=== PATIENT | male | born 1980 | race Caucasian/White ===

== ENCOUNTER 2016-10-03 13:59 | Emergency (ER) | payer OTHER ==
[~2016-10-03] VITALS: Ht 172.7 cm; Wt 90.4 kg
[2016-10-03 14:03] VITALS: TEMP 37.1; Ht 172.7 cm; Wt 90.4 kg
[2016-10-03] MEDS ORDERED: SODIUM CHLORIDE 0.9% 1000ML 1,000 ML IV STA (14:37)
[2016-10-03] MEDS ORDERED: ONDANSETRON INJ 2 MG/ML 2 ML VIAL IV STA (14:37)
[2016-10-03] MEDS ORDERED: PANTOprazole INJ 40 MG in SYRINGE 0 ML IV ONE (14:45)
--- NOTE | 2016-10-03 14:52 | DIAGNOSTIC IMAGING REPORT ---
CHEST ONE VIEW PORTABLE CLINICAL HISTORY: Pain, radiating to the abdomen. COMPARISON STUDY: No previous studies for comparison. FINDINGS: The cardiac and mediastinal contours are normal. There is no evidence of focal pulmonary consolidation. There is no evidence of failure. No pleural effusions are visualized.[ No free intraperitoneal air is identified IMPRESSION: No active disease in the chest. Electronically signed by: Rustam Lees M.D. 10/03/2016 2:50 PM Dictated Date/Time: 10/03/2016 2:49 PM
--- NOTE | 2016-10-03 15:01 | EMERGENCY ROOM VISIT NOTE ---
History Report prepared by Mela: Yasmin Ashley Under the Supervision of: Dyana HidalgoO. First contact with patient: 14:25 Chief Complaint: NAUSEA Stated Complaint: NAUSES, VOMITING AFTER EATING FOOD AND DRINK Nursing Triage Summary: having left side rib pain for the past couple weeks. having nausea after eating. I stopped eating on night. I felt better when I didnt eat History of Present Illness The patient is a 36 year old male who presents to the Emergency Room with complaints of constant LUQ pain beginning 1 month ago. The patient states that he initially thought that he was feeling some rib pain but it persisted. He reports that 1 week ago his pain worsened and 3 days ago he began to notice that eating was making his symptoms worse. He notes that when he eats he has tingling in his legs and arms, nausea, and sweating. He denies any chest pain and trouble breathing. The patient states that when he does not eat his pain gets better but it is always there. Source of History: patient Onset: 1 month ago Position: abdomen (RUQ) Quality: other (tingling) Timing: constant Modifying Factors (Worsening): eating Modifying Factors (Relieving): other (not eating) Associated Symptoms: + diaphoresis, + nausea, No SOB, No chest pain Note: He notes that when he eats he has tingling in his legs and arms. Review of Systems See HPI for pertinent positives & negatives. A total of 10 systems reviewed and were otherwise negative. Past Medical & Surgical Medical Problems: (1) No Known Active Medical Problems Family History No pertinent family history stated. Social History Smoking Status: Former Smoker Smokeless Tobacco Use: No Alcohol Use: occasionally Housing Status: lives with significant other Current/Historical Medications Scheduled Omeprazole (Prilosec), 20 MG PO DAILY Ondasetron Odt (Zofran Odt), 4 MG SL Q6H Ranitidine (Zantac), 150 MG PO BID Allergies Coded Allergies: No Known Allergies (Unverified , 10/03/16) Physical Exam Vital Signs Date Time Temp Pulse Resp B/P Pulse Ox O2 Delivery O2 Flow Rate FiO2 10/03/16 19:04 83 16 147/86 97 10/03/16 16:46 81 16 165/98 99 Room Air 10/03/16 15:27 97 1/14/17 15:10 77 16 155/95 99 Room Air 10/03/16 14:03 37.1 97 18 154/91 97 Room Air Physical Exam GENERAL: Patient is awake, alert, and in no acute distress. Patient is resting comfortably and showing no signs of anxiety EYES: The conjunctivae are clear. The pupils are round and reactive. EARS, NOSE, MOUTH AND THROAT: The nose is without any evidence of any deformity. Mucous membranes are moist tongue is midline NECK: The neck is nontender and supple. RESPIRATORY: Normal respiratory effort is noted there is no evidence of wheezing rhonchi or rales CARDIOVASCULAR: Regular rate and rhythm noted there no murmurs rubs or gallops normal S1 normal S2 GASTROINTESTINAL: The abdomen is soft. Bowel sounds are present in all quadrants. Moderately distended but soft, tenderness in the LUQ as well as the left subcostal region. Pain was very significant and mild guarding was noted. BACK: No midline tenderness or or step-off noted range of motion in flexion extension as well as rotation no signs of muscle spasm noted MUSCULOSKELETAL/EXTREMITIES: There is no evidence of gross deformity full range of motion is noted in the hips and shoulders SKIN: There is no obvious evidence of any rash. There are no petechiae, pallor or cyanosis noted. NEUROLOGIC: Patient is awake alert and oriented x3 Medical Decision & Procedures ER Provider Diagnostic Interpretation: X ray results and stated below per my interpretation and radiology interpretation. Other radiology results per my review and radiologist interpretation: CHEST ONE VIEW PORTABLE FINDINGS: The cardiac and mediastinal contours are normal. There is no evidence of focal pulmonary consolidation. There is no evidence of failure. No pleural effusions are visualized.[ No free intraperitoneal air is identified IMPRESSION: No active disease in the chest. Electronically signed by: Rustam Lees M.D. 10/03/2016 2:50 PM Dictated Date/Time: 10/03/2016 2:[address] ABD/PELVIS IV AND ORAL CONT TECHNIQUE: Following the IV administration of 116 mL of Optiray-320, CT scan of the abdomen and pelvis was performed from the lung bases to the proximal femurs. Images are reviewed in the axial, sagittal, and coronal planes. IV contrast was administered without complication. CT DOSE: 450.18 mGy.cm FINDINGS: Lower chest: The heart is normal in size and configuration, without pericardial effusion. The lung bases and pleural spaces are clear. Liver: There is hepatic steatosis. No focal masses are visualized. Gallbladder: Unremarkable. Spleen: Normal in size and attenuation. Pancreas: Unremarkable. Adrenal glands: Unremarkable. Kidneys: There is symmetric renal cortical enhancement. The kidneys are normal in size without hydronephrosis. Bowel: There are no transition zones indicate bowel obstruction. The appendix appears normal. There is no acute diverticulitis. Peritoneum: There is no intraperitoneal free air or abdominal ascites. Vasculature: The abdominal aorta is normal in course and caliber. Adenopathy: None. Pelvic viscera: The bladder, and pelvic viscera are unremarkable. Skeletal structures: No destructive osseous lesions are seen. IMPRESSION: 1. No evidence of bowel obstruction. No evidence of free air 2. Normal appendix 3. No acute inflammatory changes 4. Hepatic steatosis Electronically signed by: Rustam Lees M.D. 10/03/2016 5:50 PM Dictated Date/Time: 10/03/2016 5:47 PM Laboratory Results 10/03/16 15:00 Red Blood Count 4.90, Mean Corpuscular Volume 90.4, Mean Corpuscular Hemoglobin 32.2, Mean Corpuscular Hemoglobin Concent 35.7, Mean Platelet Volume 9.4, Neutrophils (%) (Auto) 61.7, Lymphocytes (%) (Auto) 25.7, Monocytes (%) (Auto) 9.2, Eosinophils (%) (Auto) 2.8, Basophils (%) (Auto) 0.5, Neutrophils # (Auto) 4.57, Lymphocytes # (Auto) 1.91, Monocytes # (Auto) 0.68, Eosinophils # (Auto) 0.21, Basophils # (Auto) 0.04 10/03/16 15:00 Test 10/03/16 15:00 10/03/16 16:15 White Blood Count 7.42 K/uL (4.8-10.8) Red Blood Count 4.90 M/uL (4.7-6.1) Hemoglobin 15.8 g/dL (14.0-18.0) Hematocrit 44.3 % (42-52) Mean Corpuscular Volume 90.4 fL (80-100) Mean Corpuscular Hemoglobin 32.2 pg (25-34) Mean Corpuscular Hemoglobin Concent 35.7 g/dl (32-36) Platelet Count 175 K/uL (130-400) Mean Platelet Volume 9.4 fL (7.4-10.4) Neutrophils (%) (Auto) 61.7 % Lymphocytes (%) (Auto) 25.7 % Monocytes (%) (Auto) 9.2 % Eosinophils (%) (Auto) 2.8 % Basophils (%) (Auto) 0.5 % Neutrophils # (Auto) 4.57 K/uL (1.4-6.5) Lymphocytes # (Auto) 1.91 K/uL (1.2-3.4) Monocytes # (Auto) 0.68 K/uL (0.11-0.59) Eosinophils # (Auto) 0.21 K/uL (0-0.5) Basophils # (Auto) 0.04 K/uL (0-0.2) RDW Standard Deviation 40.2 fL (36.4-46.3) RDW Coefficient of Variation 12.1 % (11.5-14.5) Immature Granulocyte % (Auto) 0.1 % Immature Granulocyte # (Auto) 0.01 K/uL (0.00-0.02) Anion Gap 9.0 mmol/L (3-11) Est Creatinine Clear Calc Drug Dose 93.8 ml/min Estimated GFR () 90.3 Estimated GFR (Non- 77.9 BUN/Creatinine Ratio 13.4 (10-20) Calcium Level 9.4 mg/dl (8.5-10.1) Total Bilirubin 0.9 mg/dl (0.2-1) Direct Bilirubin 0.3 mg/dl (0-0.2) Aspartate Amino Transf (AST/SGOT) 53 U/L (15-37) Alanine Aminotransferase (ALT/SGPT) 150 U/L (12-78) Alkaline Phosphatase 69 U/L (45-117) Total Protein 8.3 gm/dl (6.4-8.2) Albumin 4.4 gm/dl (3.4-5.0) Amylase Level 51 U/L (25-115) Lipase 316 U/L (73-393) Urine Color DK YELLOW Urine Appearance CLEAR (CLEAR) Urine pH 5.0 (4.5-7.5) Urine Specific [place] 1.021 (1.000-1.030) Urine Protein NEG (NEG) Urine Glucose (UA) NEG (NEG) Urine Ketones 1+ (NEG) Urine Occult Blood NEG (NEG) Urine Nitrite NEG (NEG) Urine Bilirubin NEG (NEG) Urine Urobilinogen NEG (NEG) Urine Leukocyte Esterase NEG (NEG) Laboratory results per my review. Medications Administered Medications (Trade) Dose Ordered Sig/Chase Route Start Time Stop Time Status Last Admin Dose Admin Sodium Chloride (Nss 1000ml) 1,000 ml @ 999 mls/hr Q1H1M STAT IV 10/03/16 14:37 10/03/16 15:37 DC 10/03/16 15:12 999 MLS/HR Ondansetron HCl 4 mg 4 mg NOW STAT IV 10/03/16 14:37 10/03/16 14:39 DC 10/03/16 15:13 4 MG Pantoprazole Sodium/Syringe (Protonix Inj/ Syringe) 10 ml @ 5 mls/min NOW ONCE IV 10/03/16 14:45 10/03/16 14:46 DC 10/03/16 14:45 5 MLS/MIN ED Course 1430: The patient was evaluated in room A11. A complete history and physical examination were performed. 1437: Zofran Inj 4mg IV, NSS 1,000 ml @ 999 mls/hr IV, Pantoprazole Sodium 40mg/ Syringe 10ml @ 5mls/min IV. 1521: I reevaluated the patient. He is feeling better and does not want anything for pain. 1824: Upon reevaluation, the patient is hemodynamically stable. I discussed the results and treatment plan with the patient. He verbalized agreement of the treatment plan. The patient was discharged home. Medical Decision Differential diagnosis: Etiologies such as appendicitis, diverticulitis, PUD, biliary pathology, UTI, pancreatitis, obstruction, mesenteric ischemia, aortic pathology, infections, inflammatory bowel disease, renal colic, as well as others were entertained. Nursing notes reviewed. The patient is a 36-year-old male who presented to the emergency department with left upper quadrant abdominal pain. The patient's pain appeared to be worsening with food. He did have tenderness on palpation but did not have guarding to the extent that I would feel that this was an acute surgical abdomen. The patient was also concerned about the possibility of H. pylori. The patient was treated with IV fluids and IV Protonix in the emergency department. On reevaluation he was feeling much better. I discussed the patient's laboratory and radiographic studies with him. Given the description of his symptoms especially the food fear and the worsening of his pain with eating I feel this could be consistent with a GI source for his pain. For this reason I encouraged him to continue with a proton pump inhibitor as well as an H2 raeann. He was encouraged to drink plenty clear liquids. He was also encouraged to follow-up with his primary care physician for reevaluation and discuss the possibility that he may require further studies aren't evaluation by watch crystal cutter. Otherwise she was encouraged to return to the emergency department immediately if symptoms change worsen or the need arises. I also encouraged patient to have his liver function studies rechecked by his primary care physician because they were mildly elevated today. Impression Primary Impression: LUQ abdominal pain Additional Impression: Nausea Scribe Attestation The scribe's documentation has been prepared under my direction and personally reviewed by me in its entirety. I confirm that the note above accurately reflects all work, treatment, procedures, and medical decision making performed by me. Departure Information Dispostion Home / Self-Care Prescriptions Ranitidine (Zantac) 150 Mg Tab 150 MG PO BID, #60 TAB Prov: Dez Khanna, DO 10/03/16 Omeprazole (PRILOSEC) 20 Mg Cap 20 MG PO DAILY, #30 CAP Prov: Dez Khanna, DO 10/03/16 Ondasetron Odt (ZOFRAN ODT) 4 Mg Tab 4 MG SL Q6H for Nausea, #15 TAB Prov: Dez Khanna, DO 10/03/16 Forms HOME CARE DOCUMENTATION FORM, IMPORTANT VISIT INFORMATION Patient Instructions ED Epigastric Pain Ivanna ARREDONDO [facility] Additional Instructions Call your family to schedule a follow-up appointment. Continue all medications as prescribed. Drink plenty clear liquids. Discussed the possibility with your family doctor that you may require a referral to a watch crystal cutter to further evaluate the cause of her pain if it does not improve. Problem Qualifiers
[2016-10-03 15:22] LABS: BASO % 0.5 %; BASO ABS # 0.04 K/uL (0-0.2); COMPLETE YES; EOS % 2.8 %; HEMATOCRIT 44.3 % (42-52); IG% 0.1 %; LYMPH % 25.7 %; LYMPH ABS # 1.91 K/uL (1.2-3.4); MEAN CELL VOLUME 90.4 fL (80-100); MEAN CORPUSCULAR HEMOGLOBIN 32.2 pg (25-34); MEAN CORPUSCULAR HGB CONC 35.7 g/dl (32-36); MEAN PLATELET VOLUME 9.4 fL (7.4-10.4); MONO % 9.2 %; NEUT % 61.7 %; PLATELET COUNT 175 K/uL (130-400); WHITE BLOOD COUNT 7.42 K/uL (4.8-10.8)
[2016-10-03 15:40] LABS: BUN/CREATININE RATIO 13.4 (10-20); CALCIUM 9.4 mg/dl (8.5-10.1); CREATININE 1.2 mg/dl (0.60-1.40); POTASSIUM 3.8 mmol/L (3.5-5.1)
[2016-10-03 16:42] LABS: URINE APPEARANCE CLEAR (CLEAR); URINE COLOR DK YELLOW; URINE NITRITE NEG (NEG); URINE SPECIFIC GRAVITY 1.021 (1.000-1.030); UROBILINOGEN NEG (NEG)
[2016-10-03] MEDS ORDERED: OPTIRAY 320 IV PRN (16:45)
[2016-10-03 16:48] LABS: MANUAL MICROSCOPIC REQUIRED? NO; REVIEW REQ? NO; URINE BILIRUBIN NEG (NEG)
--- NOTE | 2016-10-03 17:52 | DIAGNOSTIC IMAGING REPORT ---
CT ABD/PELVIS IV AND ORAL CONT CLINICAL HISTORY: Left upper quadrant abdominal pain COMPARISON STUDY: None. TECHNIQUE: Following the IV administration of 116 mL of Optiray-320, CT scan of the abdomen and pelvis was performed from the lung bases to the proximal femurs. Images are reviewed in the axial, sagittal, and coronal planes. IV contrast was administered without complication. CT DOSE: 450.18 mGy.cm FINDINGS: Lower chest: The heart is normal in size and configuration, without pericardial effusion. The lung bases and pleural spaces are clear. Liver: There is hepatic steatosis. No focal masses are visualized. Gallbladder: Unremarkable. Spleen: Normal in size and attenuation. Pancreas: Unremarkable. Adrenal glands: Unremarkable. Kidneys: There is symmetric renal cortical enhancement. The kidneys are normal in size without hydronephrosis. Bowel: There are no transition zones indicate bowel obstruction. The appendix appears normal. There is no acute diverticulitis. Peritoneum: There is no intraperitoneal free air or abdominal ascites. Vasculature: The abdominal aorta is normal in course and caliber. Adenopathy: None. Pelvic viscera: The bladder, and pelvic viscera are unremarkable. Skeletal structures: No destructive osseous lesions are seen. IMPRESSION: 1. No evidence of bowel obstruction. No evidence of free air 2. Normal appendix 3. No acute inflammatory changes 4. Hepatic steatosis Electronically signed by: Rustam Lees M.D. 10/03/2016 5:50 PM Dictated Date/Time: 10/03/2016 5:47 PM
[2016-10-03] MEDS ORDERED: ZNTT/150 PO (18:31)
[2016-10-03] MEDS ORDERED: OMEP20CA9 PO (18:31)
[2016-10-03] MEDS ORDERED: ONDA4TAB10 SL (18:31)
[2016-10-03 19:04] VITALS: BP 147/86; PULSE 83; O2SAT 97
== END 2016-10-03 19:05 | disposition home or self-care (01) ==
LOC: C.EDB 14:01 → C.EDA 19:05
DX: R10.12 Left upper quadrant pain (principal); R11.0 Nausea; Z87.891 Personal history of nicotine dependence